=== PATIENT | female | born 1970 | race Caucasian/White ===

== ENCOUNTER 2016-09-14 11:51 | Day surgery (SDC) | payer OTHER ==
[~2016-09-14] VITALS: Ht 162.6 cm; Wt 65.7 kg
[~2016-09-14 11:51] MED LIST: BYSTOLIC10 MG PO; ELAVIL25 MG PO; PERCOCET 10/1 TABLET PO; TRICOR145 MG PO; XANAX1 MG PO
[2016-09-14 12:15] VITALS: BP 134/92
[2016-09-14 19:59] VITALS: BP 127/91
[2016-09-14 20:52] VITALS: BP 130/77
== END 2016-09-14 20:54 | disposition home or self-care (01) ==
LOC: SDC 11:51
PROC: 00NY3ZZ Release Lumbar Spinal Cord, Percutaneous Approach (ICD-10-PCS; principal; 2016-09-14)
DX: M54.16 Radiculopathy, lumbar region (principal); G96.19 Other disorders of meninges, not elsewhere classified; I10 Essential (primary) hypertension; M54.5 Low back pain; F41.9 Anxiety disorder, unspecified; E78.5 Hyperlipidemia, unspecified
CPT/HCPCS: 72020; 76000; 86850; 86900; 86901; J0330; J0690; J1170; J2250; J2405; J2765; J3010; S0020